=== PATIENT | male | born 1955 | race Caucasian/White ===

== ENCOUNTER 2020-06-08 09:10 | Emergency (ER) | payer MEDICARE, OTHER, SELFPAY ==
[2020-06-08 09:21] VITALS: BP 147/70; PULSE 59; RESP 16; TEMP 36.7; O2SAT 100; BMI 20.1
--- NOTE | 2020-06-08 09:30 | ED.ABDPAIN ---
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) Mode of arrival: ambulatory Limitations: other (deaf, blind) History of Present Illness HPI narrative: R hernia pain for 1 month worse last night no associated symptoms, able to void and have BM without issue, unsure if he needed surgery MD elicited complaint: other (groin pain) Pertinent past history: none Onset (ago): unknown (1 month ago) Pain Consistency: intermittent Location: RLQ Severity: moderate Quality: aching Radiation: none Migration to: no migration Exacerbating factors: movement Relieving factors: nothing Associated symptoms: denies other symptoms Review of Systems Review of Systems Constitutional : No Weight loss, No Fever, No Chills ENT/Mouth : No sore throat, No Rhinorrhea Eyes: No Swelling, No Redness Cardiovascular : No Chest Pain, No SOB Respiratory : No Cough, No Sputum Gastrointestinal : No Nausea, No Vomiting, No Diarrhea, intermittent R lower abdomina pain Genitourinary : No Dysuria, No Urinary Frequency Musculoskeletal : No joint pain, No Myalgias Skin : No rash Neuro : No Weakness, No Numbness Psych : No Anxiety/Panic, No Depression Heme/Lymph: No Bleeding,No Lymphadenopathy Endocrine : No Polyuria, No Polydipsia Physical Exam Vital Signs and I&O and Narrative: Vital Signs and I&O: Vital Signs Temp 98.0 F 06/08/20 09:21 Pulse 59 06/08/20 09:21 Resp 16 06/08/20 09:21 BP 147/70 H 06/08/20 09:21 Pulse Ox 100 06/08/20 09:21 Intake & Output 06/07/20 06/08/20 06/08/20 18:59 06:59 18:59 Weight 56.699 kg Body Mass Index 20.1 Const: General: cooperative, healthy appearing and no acute distress Orientation/consciousness: oriented to person, oriented to place, oriented to time and patient oriented x3 HENMT: Head: Yes normal to inspection Face and sinus: Yes normal facial exam Mouth: Normal oral and palatal mucosa present Neck: Neck: Yes normal visual inspection Chest: Chest palpation & inspection: normal inspection of the chest Resp: Effort & Inspection: normal respiratory effort Auscultation: clear to auscultation bilaterally Cardio: Rate: regular rate Rhythm: regular rhythm GI: Other: easily reduced nontender inguinal hernia right side, normal color, normal scrotum, abodmen is soft and nontender Inspection: Yes normal to inspection Auscultation: normal bowel sounds : Scrotum: scrotum normal Skin: General skin exam: no rashes or lesions noted Neuro: General: oriented to person, oriented to place, oriented to time and patient oriented x3 Gait exam (Neuro): Normal gait present Motor exam (neuro): 5/5 motor strength present throughout Extrem: General: Yes normal to inspection and Yes no pedal edema Psych: Appearance: grossly normal Mental Status: mental status grossly normal MDM - Abdominal Pain MDM Narrative Medical decision making narrative: hernia x 1 month, nontender, no or associated GI complaints, easily reduced discussed expectant course and need for follow up and surgery as outpatient Discharge Plan Discharge Clinical Impression: Inguinal hernia Qualifiers: Obstruction and gangrene presence: without obstruction or gangrene Laterality: unilateral Recurrence: recurrent Qualified Code(s): K40.91 - Unilateral inguinal hernia, without obstruction or gangrene, recurrent Patient Disposition: Home, Self-Care Additional Instructions: wear tight fitting underwear do not lift anything over 10lbs, avoid straining Referrals: Miguel Mcclure MD [Physician] - 1 week Interventions: ED Discharge Assessment Last Done: 06/08/20 10:07 Print Language: Northern Irish [facility] Past Medical History Attestation statement: The following information was validated with the patient. Medical History Blind Deaf Inguinal hernia Surgical History H/O eye surgery Hx of LASIK Social History Social History Smoking Status: Never smoker
== END 2020-06-08 10:07 | disposition home or self-care (01) ==
LOC: HO.ED 10:30
PROVIDERS: Emergency Provider Emergency Medicine; PCP Family Medicine
DX: K40.91 Unilateral inguinal hernia, without obstruction or gangrene, recurrent (principal)
CPT/HCPCS: 99283; 99284

== ENCOUNTER → 2020-06-14 14:57 | Outpatient (BNVA) | payer MEDICARE, OTHER, SELFPAY | PROVIDERS: PCP Family Medicine; Referring Provider Family Medicine; Visit Provider Surgery | DX: K40.90 Unilateral inguinal hernia, without obstruction or gangrene, not specified as recurrent (principal) | CPT/HCPCS: 99203 ==

== ENCOUNTER 2020-06-21 08:51 | Outpatient (REF) | payer MEDICARE, OTHER, SELFPAY ==
--- NOTE | 2020-06-22 10:13 | MHC.AU.P13 ---
Adult Audiological Evaluation Date of Visit: 06/21/20 Reason for Appointment: Audiologic re-evaluation to determine possible change in hearing prior to obtaining new hearing aid(s). Previous Hearing Test Results: 04/14/2019 Asymmetric severe to profound sensorineural hearing loss, right ear poorer than left. Speech discrimination was 44% for the left ear at 100 dB HL and 0% for the right ear. Medical History: Medical History: Usher's Syndrome. Nitesh is also blind and working with the [employer] [facility] to obtain new amplification. Hearing Instrument History- Left Ear: Truck Hopper: Truevision Model: ES 70-DVI Serial Number: [id number] Battery Size: 13 Otoscopy: Right Ear: Unremarkable Left Ear: Non-occluding cerumen Tympanometry: Right Ear: Normal Middle Ear System (Type A) Left Ear: Negative Middle Ear Pressure (Type C) Hearing Evaluation: Transducer(s) Used: Insert Earphones Bone Conduction Method: Conventional Audiometry Stimuli Used: Pure Tones Right Ear: Description of Hearing: Moderately-severe to profound sensorineural hearing loss Left Ear: Description of Hearing: Severe to profound sensorineural hearing loss. Speech Recognition Threshold (SRT): Method Used: Monitored Live Voice Stimuli Used: Spondee Words Right Ear: Could Not Test - unable to discriminate speech Left Ear: 70 dB HL Word Discrimination: Method: Monitored Live Voice Word Lists Used: Lista Bisil?bica ([place] Citizen) Right Ear: 10% Left Ear: 52% Comparison: Compared to the most recent evaluation: Hearing is stable. Recommendations: Recommendations: Audiological re-evaluation in one year. Trial with amplification is recommended. Medical clearance from a physician is required before fitting. Hearing Aid Fitting will be scheduled when all materials arrive. Recommendations (Other): Discussed hearing aid options. Originally recommended a Bi-CROS hearing aid system due to Nitesh' very poor right ear speech discrimination ability. However, Nitesh reports he has always used binaural amplification and know that he only has the left aid, her feels very off balanced and wants hearing aids for both ears. Will contact [facility] with the recommendation of switching his current aid to the right ear and obtaining a new left Phonak Maria Esther M 30-SP [id number] aid. Diagnosis: Primary Diagnosis: H90.3 Bilateral Sensorineural Hearing Loss Services Performed: Services Performed: Comprehensive Audiological Evaluation (CPT 59415) Tympanometry (CPT 16033) Signature: Provider: Quiana Israel, CCC-A
== END 2020-06-21 08:52 | disposition home or self-care (01) ==
LOC: HO.SH 08:51
PROVIDERS: Visit Provider Family Medicine
DX: H90.3 Sensorineural hearing loss, bilateral (principal)
CPT/HCPCS: 92557; 92567

== ENCOUNTER 2020-07-07 10:03 | Day surgery (SDC) | payer MEDICARE, OTHER, SELFPAY ==
--- NOTE | 2020-07-06 09:12 | HO.ANESPROP2 ---
Documented by User: Mattie Wells 07/06/20 09:15 HPI - Anesthesia Eval Consult details Narrative: 65yo M for R inguinal hernia repair PMFSH Past Medical History Medical History Blind Deaf Hearing impaired Impaired vision Inguinal hernia Unilateral inguinal hernia Surgical History Surgical History H/O eye surgery Hx of LASIK Social History Social History Smoking Status: Never smoker Second Hand Smoke Exposure: No Advance Directives: No Advance Directives Information Provided: Yes Advance Directives on File: No Meds Allergies Allergy/AdvReac Type Severity Reaction Status Date / Time No Known Allergies Allergy Verified 06/14/20 15:15 Exam Exam Date and Time: July 06, 2020 0912 Assessment and Plan Assessment Anesthesia Assessment: Chart Reviewed Documented by User: Francoise Del Real 07/07/20 11:01 PMFSH Past Medical History Medical History Blind Deaf Hearing impaired Impaired vision Inguinal hernia Unilateral inguinal hernia Surgical History Surgical History H/O eye surgery Hx of LASIK Social History Social History Smoking Status: Never smoker Second Hand Smoke Exposure: No Advance Directives: No Advance Directives Information Provided: Yes Advance Directives on File: No Meds Allergies Allergy/AdvReac Type Severity Reaction Status Date / Time No Known Allergies Allergy Verified 06/14/20 15:15 Exam Airway Mallampati Class: II TM Dist: >3cm Neck ROM: Full Heart: RRR Lungs: CTA BL
[2020-07-06 10:58] VITALS: BMI 18.2
[2020-07-07] VITALS (13 sets, daily range): BP systolic 122–186; BP diastolic 64–103; PULSE 56–86; RESP 14–19; TEMP 36.3–36.8; O2SAT 98–100
[2020-07-07] MEDS: Lactated Ringers 1,000 ML 100 ML IVCONT (10:37)
[2020-07-07] MEDS: ceFAZolin Sodium/Dextrose,Iso 2 GM/50 ML PIGGYBACK IV (10:37)
--- NOTE | 2020-07-07 11:03 | HO.ANESPROP2 ---
[facility] Past Medical History Medical History Blind Deaf Hearing impaired Impaired vision Inguinal hernia Unilateral inguinal hernia Surgical History Surgical History H/O eye surgery Hx of LASIK Social History Social History Smoking Status: Never smoker Second Hand Smoke Exposure: No Advance Directives: No Advance Directives Information Provided: Yes Advance Directives on File: No Meds Allergies Allergy/AdvReac Type Severity Reaction Status Date / Time No Known Allergies Allergy Verified 06/14/20 15:15 Exam Exam Date and Time: July 07, 2020 1103 Height,Weight and Vital Signs: Height 5 ft 6 in Weight 51.256 kg Last Vital Signs Temp 97.8 F 07/07/20 10:14 Pulse 60 07/07/20 10:14 Resp 18 07/07/20 10:14 BP 141/74 H 07/07/20 10:14 Pulse Ox 100 07/07/20 10:14 Assessment and Plan Assessment Anesthesia Assessment: Anesthesia Plan Discussed, PAT Visit and Chart Reviewed Final Anesthetic Review NPO: Yes ASA Class: II Final Preanesthetic Review: No Changes in Pt Med Stat, Meds/Allgs Chart Reviewed and Consent Obtained/Reviewed Patient Risk: Low Procedure Risk: Low Anesthetic Plan Anesthetic Plan: GA Disposition: Standard PACU
--- NOTE | 2020-07-07 11:12 | MHC.SHP ---
Pre-Procedural Eval Section B Chief Complaint: Unilateral Inguinal Hernia, Without Obstruction Allergies: Allergies Allergy/AdvReac Type Severity Reaction Status Date / Time No Known Allergies Allergy Verified 06/14/20 15:15 Plan Patient has been examined and remains a candidate for the planned procedure
--- NOTE | 2020-07-07 12:17 | P.BOP_ITS ---
Brief Operative Note Date of procedure: 07/07/20 Pre-op diagnosis: right inguinal hernia Post-op diagnosis: same (direct) Procedure: repair of right inguinal hernia with mesh Implants: Bard mesh perfix plug, small Surgeon: AMISHA THIBODEAUX MD Anesthesia: GLMA Vinyl Flooring Installer: Charlee Hi Estimated blood loss (mL): 10 IV fluids (mL): 1,000 Pathology: none sent Condition: stable Disposition: PACU
[2020-07-07] MEDS: fentaNYL citrate/PF 100 MCG/2 ML VIAL 25 MCG IVPUSH (13:01)
[2020-07-07] MEDS: Ketorolac Tromethamine 15 MG/ML VIAL IVPUSH (13:01)
[2020-07-07] MEDS: oxyCODONE HCl Immed Release 5 MG TABLET PO (13:02)
[2020-07-07] MEDS: Acetaminophen 325 MG TABLET 650 MG PO (13:02)
--- NOTE | 2020-07-07 17:22 | OP_ITS ---
SURGEON: Miguel Mcclure MD INDICATIONS: The patient is a 65-year-old male with a reducible mass in the right groin consistent with right inguinal hernia. He wanted to proceed with repair. He understood the technique of the procedure. He is aware of the risks, benefits, and alternatives. PREOPERATIVE DIAGNOSIS: Right inguinal hernia. POSTOPERATIVE DIAGNOSIS: Right inguinal hernia, direct hernia. PROCEDURE PERFORMED: Repair of right inguinal hernia with mesh and plug. ESTIMATED BLOOD LOSS: COMPLICATIONS: ANESTHESIA: ASSISTANTS: Charlee Hi PA-C. SPECIMENS: DESCRIPTION OF PROCEDURE: He was brought to the operating room, placed supine on the table under general anesthesia via laryngeal mask airway. The right groin was prepped and draped in usual sterile fashion. A surgical time-out was done. The patient received cefazolin 2 g IV preoperatively. I marked an imaginary line from anterior superior iliac spine to the pubic ramus. I infiltrated this area with lidocaine 1%. I made a short incision using blade #15 along this marked line and this was carried down to full-thickness skin and thick subcutaneous fat using electrocautery. External oblique aponeurosis was then visualized. We bluntly dissected this to define the external ring. We made an incision on the external oblique aponeurosis overlying the canal using blade #15, it was extended inferomedially to connect with the external ring. The inguinal canal was therefore entered. Graspers were applied to the edges of the external oblique aponeurosis. I bluntly dissected the underside of the aponeurosis with the finger to create a pocket for the mesh. I then bluntly dissected the spermatic cord and its contents using index finger until I was able to pass a Carmen drain around this. The [place] drain was used for traction. I examined the cord. There was note of sac, but this was actually attached to the floor of the canal consistent with a direct hernia. This sac was gently dissected off the rest of the cord contents. The vas deferens along with its vessels were seen. There was no other sac on the spermatic cord. Again, this was therefore a direct hernia on the floor of the canal. I reinforced this hernia with a small sized plug. This plug was secured together with Prolene 2-0 suture to shelving edge of the inguinal ligament laterally and the internal oblique superiorly and medially using the inner leaves of the plug. I reinforced the floor of the canal with keyhole mesh. The tails of the mesh were passed around the cord at the level of the internal ring and were secured together with Prolene 2-0 sutures. I secured the flat mesh with Prolene 2-0 suture to shelving edge of the inguinal ligament laterally and the internal oblique superiorly, medially as well as the pubic ramus inferomedially. I observed for hemostasis. Once hemostasis was ensured, proceeded to close the external oblique aponeurosis using Dexon 2-0 sutures to re-create the external ring. We made sure that the ilioinguinal nerve was not caught between the sutures. The thin subcutaneous layer was reapposed with Dexon 3-0 sutures. Skin closure achieved with Dexon 4-0 subcuticular running stitch. Steri-Strips and dressings were applied. The incision was infiltrated with Marcaine 0.5% for postop analgesia. The procedure was completed. The patient tolerated the procedure well. There were no complications noted. Initial and final counts of sponges and instruments were correct. Estimated blood loss was minimal. The patient was extubated without difficulty and transferred to recovery room with stable vital signs. The discharge instructions given earlier with the patient's caregiver. MD ISIAH Cali/GRECIA / [id number]
== END 2020-07-07 14:20 | disposition home or self-care (01) ==
PROVIDERS: PCP Family Medicine; Visit Provider Surgery
PROC: (CPT 49505; principal; 2020-07-07 11:50)
PROC: (CPT 49505; 2020-07-07 11:50)
DX: K40.90 Unilateral inguinal hernia, without obstruction or gangrene, not specified as recurrent (principal)
CPT/HCPCS: 49505; C1781; J0690; J1100; J1885; J2250; J2405; J3010

== ENCOUNTER → 2020-07-31 10:44 | Outpatient (BNVA) | payer MEDICARE, OTHER, SELFPAY | PROVIDERS: PCP Family Medicine; Visit Provider Surgery | DX: Z09 Encounter for follow-up examination after completed treatment for conditions other than malignant neoplasm (principal); Z87.19 Personal history of other diseases of the digestive system | CPT/HCPCS: 99212 ==

== ENCOUNTER → 2020-08-09 13:15 | Outpatient (BNVA) | payer MEDICARE, OTHER, SELFPAY | PROVIDERS: PCP Family Medicine; Referring Provider Family Medicine; Visit Provider Physician Assistant | DX: Z12.11 Encounter for screening for malignant neoplasm of colon (principal); K59.09 Other constipation | CPT/HCPCS: 99202 ==

== ENCOUNTER 2020-08-21 09:48 | Outpatient (REF) | payer SELFPAY | END 2020-08-21 09:49 | disposition home or self-care (01) | LOC: HO.HAP 09:48 | PROVIDERS: PCP Family Medicine; Referring Provider Family Medicine; Visit Provider Family Medicine | DX: Z46.1 Encounter for fitting and adjustment of hearing aid (principal); H90.3 Sensorineural hearing loss, bilateral | CPT/HCPCS: V5257 ==

== ENCOUNTER 2020-09-07 10:03 | Outpatient (REF) | payer SELFPAY | END 2020-09-07 10:04 | disposition home or self-care (01) | LOC: HO.HAP 10:03 | PROVIDERS: Visit Provider Family Medicine | DX: Z13.89 Encounter for screening for other disorder (principal) ==

== ENCOUNTER 2020-09-21 11:11 | Day surgery (SDC) | payer MEDICARE, OTHER, SELFPAY ==
[2020-09-18 11:13] VITALS: BMI 19.3
--- NOTE | 2020-09-20 13:09 | P.CONAN_ITS ---
Documented by User: Mattie Wells 09/20/20 13:10 HPI - Anesthesia Eval Consult details Narrative: 65yo M for Colonoscopy Blind and Deaf, requires tactile ASL s/p hernia repair with GA 07/07/20 [facility] Past Medical History Medical History (Updated 09/18/20 @ 11:12 by Isabel Arellano) Blind Chronic constipation Deaf Hearing impaired Impaired vision Inguinal hernia Unilateral inguinal hernia Usher's syndrome Family History Family History (Updated 08/09/20 @ 13:45 by Dawna Car CMA) Father No problems noted. Mother No problems noted. Surgical History Surgical History (Updated 09/18/20 @ 11:13 by Isabel Arellano) H/O eye surgery Hx of LASIK Hx of right inguinal hernia repair Social History Social History (Updated 08/09/20 @ 14:02 by Helene Rosado PA-C) Alcohol intake: never Smoking Status: Never smoker Second Hand Smoke Exposure: No Use of substances other than those prescribed or required for medical reasons: No Advance Directives: No Advance Directives Information Provided: No Advance Directives on File: No Meds Allergies Allergy/AdvReac Type Severity Reaction Status Date / Time No Known Allergies Allergy Verified 09/18/20 11:10 Exam Exam Date and Time: September 20, 2020 1309 Height,Weight and Vital Signs: Height 5 ft 6 in Weight 54.431 kg Assessment and Plan Assessment Anesthesia Assessment: Chart Reviewed Documented by User: Charlotte Hansen 09/21/20 12:16 [facility] Past Medical History Medical History (Updated 09/18/20 @ 11:12 by Isabel Arellano) Blind Chronic constipation Deaf Hearing impaired Impaired vision Inguinal hernia Unilateral inguinal hernia Usher's syndrome Family History Family History (Updated 08/09/20 @ 13:45 by Dawna Car CMA) Father No problems noted. Mother No problems noted. Family history of problems with anesthesia: No Surgical History Surgical History (Updated 01/11/21 @ 11:13 by Isabel Arellano) H/O eye surgery Hx of LASIK Hx of right inguinal hernia repair History of Problems with Anesthesia: No Social History Social History (Updated 08/09/20 @ 14:02 by Helene Rosado PA-C) Alcohol intake: never Smoking Status: Never smoker Second Hand Smoke Exposure: No Use of substances other than those prescribed or required for medical reasons: No Advance Directives: No Advance Directives Information Provided: No Advance Directives on File: No Meds Allergies Allergy/AdvReac Type Severity Reaction Status Date / Time No Known Allergies Allergy Verified 09/18/20 11:10 Exam Height,Weight and Vital Signs: Vital Signs Temp Pulse Resp BP Pulse Ox 09/21/20 11:57 98.7 F 53 16 128/74 98 Airway Mallampati Class: III (Small mouth opening) TM Dist: >3cm Neck ROM: Full Heart: RRR Lungs: CTAB Assessment and Plan Assessment Anesthesia Assessment: Anesthesia Plan Discussed and Chart Reviewed Final Anesthetic Review NPO: Yes ASA Class: II Final Preanesthetic Review: No Changes in Pt Med Stat, Meds/Allgs Chart Reviewed, Consent Obtained/Reviewed and Anes Risks/Benef Reviewed Patient Risk: Low Procedure Risk: Low Anesthetic Plan Anesthetic Plan: MAC: Disposition: Standard PACU
--- NOTE | 2020-09-21 11:50 | MHC.SHP ---
Pre-Procedural Eval Section B Chief Complaint: screening Relevant Family History (Specify if Yes): No Relevant Social History: None Present Medications: see Short Stay Collaborative assessment Medical History: Significant History (Blind Chronic constipation Deaf Hearing impaired Impaired vision Inguinal hernia Unilateral inguinal hernia Usher's syndrome) History of Previous Operations: Relevant previous surgery/procedure and date(s) (hernia repair) Allergies: Allergies Allergy/AdvReac Type Severity Reaction Status Date / Time No Known Allergies Allergy Verified 09/18/20 11:10 Review of Systems Sugical H&P ROS: Negative: Constitution, Cardiovascular, Respiratory, Neurological, Psychiatric, Hem-Onc, Allergic/Immunologic, Gastrointestinal, Genitourinary, Musculoskeletal, Integumentary, Endocrine and Eyes/Ears/Nose/Throat Exam Surgical H&P Exam: Normal: HEENT, Normal: Heart, Normal: Lungs, Normal: Extremities, Normal: Abdomen and Normal: Skin and Significant Findings: Neurological (deaf,blind) Plan Diagnosis/Plan: Unchanged I have reviewed the history and physical and performed a pertinent physical examination on my patient. No changes have occurred unless specified.
[2020-09-21 11:57] VITALS: BP 128/74; PULSE 53; RESP 16; TEMP 37.1; O2SAT 98
--- NOTE | 2020-09-21 12:17 | PM.OP ---
Brief Operative Note Date of Service: 09/21/20 Pre-op diagnosis: colon screening Post-op diagnosis: same Procedure: see op note Surgeon: Tani Shell MD Anesthesia: MAC Estimated blood loss (mL): 0 Condition: stable Disposition: PACU
--- NOTE | 2020-09-21 12:17 | W.PM.OPN ---
Operative Note Operative Note Date of Service: 09/21/20 Narrative: Operative Information Procedure Description: Colonoscopy COLONOSCOPY Instrument: Olympus variable stiffness pediatric scope 190L Colonoscopy Monitoring: Vital signs and clinical assessment, continuous EKG monitoring, Pulse oximetry, Carbon Dioxide monitoring and blood pressure monitoring were done throughout the procedure. Colon withdrawal time was 22 minutes. Procedure: The patient was placed in the left lateral decubitis position and pre-procedure medications were administered. After a digital rectal examination of the ano-rectum, the video colonoscope was inserted into the rectum and advanced through the colon to the cecum/TI. The colonoscope was slowly withdrawn in a retrograde panoramic fashion and the colon mucosa was carefully examined including a retroflexed view of the rectum. Findings and interventions are described below. Procedure Difficulty:difficult due to prep Findings: Terminal Ileum-not entered or seen due to prep Cecum:normal Ascending Colon: normal Transverse Colon -normal Descending Colon:normal Sigmoid Colon: normal Rectum: Retroflexion not done Anorectum - normal Colon preparation: [place] Bowel Preparation Scale Right colon; 1 Transverse colon: 0 Left colon; 0 (0 = Unprepared colon segment with mucosa not seen due to solid stool that cannot be cleared. 1 = Portion of mucosa of the colon segment seen, but other areas of the colon segment not well seen due to staining, residual stool and/or opaque liquid. 2 = Minor amount of residual staining, small fragments of stool and/or opaque liquid, but mucosa of colon segment seen well. 3 = Entire mucosa of colon segment seen well with no residual staining, small fragments of stool or opaque liquid) Impression and Post Procedure Diagnosis: poor prep despite vigorous washing to try to clean Plan: Repeat Colonoscopy in 6-8 months, review prep again with him and carer Above findings were reviewed with the patient and relevant handouts were provided if indicated.
[2020-09-21 13:20] VITALS: BP 125/66; PULSE 66; RESP 18; TEMP 36.1; O2SAT 99
[2020-09-21 13:55] VITALS: BP 148/76; PULSE 81; RESP 18; O2SAT 99
[2020-09-21 14:05] VITALS: BP 147/87; PULSE 67; RESP 18; O2SAT 99
[2020-09-21 14:20] VITALS: BP 125/66; PULSE 66; RESP 18; TEMP 36.4; O2SAT 99
== END 2020-09-21 15:18 | disposition home or self-care (01) ==
PROVIDERS: PCP Family Medicine; Visit Provider Internal Medicine Gastroenterology
PROC: 0DJD8ZZ Inspection of Lower Intestinal Tract, Via Natural or Artificial Opening Endoscopic (ICD-10-PCS; CPT 45378; principal; 2020-09-21 12:40)
DX: Z12.11 Encounter for screening for malignant neoplasm of colon (principal); K59.04 Chronic idiopathic constipation; H54.7 Unspecified visual loss; H91.93 Unspecified hearing loss, bilateral; L10.4 Pemphigus erythematosus; Z79.899 Other long term (current) drug therapy
CPT/HCPCS: G0121

== ENCOUNTER → 2020-09-28 12:53 | Outpatient (BNVA) | payer MEDICARE, OTHER, SELFPAY | PROVIDERS: PCP Family Medicine; Visit Provider Physician Assistant | DX: Z13.89 Encounter for screening for other disorder (principal) | CPT/HCPCS: Q3014 ==

== ENCOUNTER → 2021-04-10 11:50 | Outpatient (BNVA) | payer MEDICARE, OTHER, SELFPAY | PROVIDERS: PCP Family Medicine; Referring Provider Family Medicine; Visit Provider Internal Medicine Gastroenterology | DX: Z12.11 Encounter for screening for malignant neoplasm of colon (principal); S70.362A Insect bite (nonvenomous), left thigh, initial encounter | CPT/HCPCS: 99212 ==

== ENCOUNTER → 2021-07-18 10:43 | Day surgery (SDC) | payer MEDICARE, OTHER, SELFPAY ==
--- NOTE | 2021-06-05 10:19 | P.CONAN_ITS ---
HPI - Anesthesia Eval Consult details Narrative: 66yo M for Colonoscopy Colonoscopy with TIVA 09/2020 (poor prep) [facility] Active Problems Active Problems: All Active Problems (Updated 09/28/20 @ 13:29 by Helene Rosado PA-C) Encounter for screening colonoscopy (Acute) Chronic constipation (Acute) Unilateral inguinal hernia (Acute) Hearing impaired (Acute) Impaired vision (Acute) Past Medical History Medical History Blind Chronic constipation Deaf Hearing impaired Impaired vision Inguinal hernia Unilateral inguinal hernia Usher's syndrome Family History Family History Father No problems noted. Mother No problems noted. Family history of problems with anesthesia: No Surgical History Surgical History (Updated 05/31/21 @ 15:03 by Osiris Cerna RN) H/O eye surgery Hx of colonoscopy Hx of LASIK Hx of right inguinal hernia repair History of Problems with Anesthesia: No Social History Social History Household Members Other:: senior housing Alcohol intake: never Second Hand Smoke Exposure: No Meds Allergies Allergy/AdvReac Type Severity Reaction Status Date / Time No Known Allergies Allergy Verified 05/31/21 15:21 Exam Exam Date and Time: June 05, 2021 1019 Assessment and Plan Assessment Anesthesia Assessment: Chart Reviewed Final Anesthetic Review Family History of Problems with Anesthesia: No History of Problems with Anesthesia: No
--- NOTE | 2021-07-17 10:34 | P.CONAN_ITS ---
HPI - Anesthesia Eval Consult details Narrative: 66yo M for Colonoscopy Blind/Deaf - uses certified court/medical interpreter s/p [place] with TIVA 09/2020 - repeat d/t poor prep PMFSH Active Problems Active Problems: All Active Problems (Updated 09/28/20 @ 13:29 by Helene Rosado PA-C) Encounter for screening colonoscopy (Acute) Chronic constipation (Acute) Unilateral inguinal hernia (Acute) Hearing impaired (Acute) Impaired vision (Acute) Past Medical History Medical History Blind Chronic constipation Deaf Hearing impaired Impaired vision Inguinal hernia Unilateral inguinal hernia Usher's syndrome Family History Family History Father No problems noted. Mother No problems noted. Family history of problems with anesthesia: No Surgical History Surgical History H/O eye surgery Hx of colonoscopy Hx of LASIK Hx of right inguinal hernia repair History of Problems with Anesthesia: No Social History Social History Household Members Other:: senior housing Alcohol intake: never Second Hand Smoke Exposure: No Meds Allergies Allergy/AdvReac Type Severity Reaction Status Date / Time No Known Allergies Allergy Verified 05/31/21 15:21 Exam Exam Date and Time: July 17, 2021 1034 Assessment and Plan Assessment Anesthesia Assessment: Chart Reviewed Final Anesthetic Review Family History of Problems with Anesthesia: No History of Problems with Anesthesia: No
[2021-07-18 11:22] VITALS: BMI 19.0
--- NOTE | 2021-07-18 11:28 | MHC.SHP ---
Pre-Procedural Eval Section A Date of Service: 07/18/21 Section B Chief Complaint: Screening Relevant Family History (Specify if Yes): No Relevant Social History: None Present Medications: see Short Stay Collaborative assessment Medical History: Significant History (Blind Chronic constipation Deaf Hearing impaired Impaired vision Inguinal hernia Unilateral inguinal hernia Usher's syndrome) Allergies: Allergies Allergy/AdvReac Type Severity Reaction Status Date / Time No Known Allergies Allergy Verified 05/31/21 15:21 Review of Systems Sugical H&P ROS: Negative: Constitution, Cardiovascular, Respiratory, Neurological, Psychiatric, Hem-Onc, Allergic/Immunologic, Gastrointestinal, Genitourinary, Musculoskeletal, Integumentary, Endocrine and Eyes/Ears/Nose/Throat Exam Surgical H&P Exam: Normal: HEENT, Normal: Heart, Normal: Lungs, Normal: Extremities, Normal: Abdomen, Normal: Skin and Normal: Neurological Plan Diagnosis/Plan: Unchanged I have reviewed the history and physical and performed a pertinent physical examination on my patient. No changes have occurred unless specified.
[2021-07-18 11:39] VITALS: BP 148/65; PULSE 60; RESP 16; TEMP 36.7; O2SAT 98
--- NOTE | 2021-07-18 12:02 | PC.NURSE ---
PATIENT HAD AN ENEMA WITH LIQUID BROWN OUTPUT. RAHUL PROCEDURE WELL. ASL INTERPRETERS BY BEDSIDE AND EXPLAINING TO PATIENT HIS PLAN OF CARE.
--- NOTE | 2021-07-18 12:04 | PC.NURSE ---
MD PARKS AWARE AND CANCELLED PROCEDURE. BILL CALLED.
--- NOTE | 2021-07-18 12:07 | PC.NURSE ---
CALLED [facility] FOR HIS [place] [place] [phone]
== END ==
PROVIDERS: PCP Family Medicine; Visit Provider Internal Medicine Gastroenterology
DX: Z12.11 Encounter for screening for malignant neoplasm of colon (principal); Z53.8 Procedure and treatment not carried out for other reasons; H54.7 Unspecified visual loss; H91.93 Unspecified hearing loss, bilateral

== ENCOUNTER 2021-08-17 09:28 | Outpatient (REF) | payer MEDICARE, OTHER, SELFPAY ==
--- NOTE | ~2021-08-17 | CT_ITS ---
EXAMINATION: CT ABDOMEN AND PELVIS WITH CONTRAST CLINICAL INFORMATION: Abnormal weight loss COMPARISON: None TECHNIQUE: Multidetector volumetric images were obtained from the superior aspect of the liver through the pubic symphysis following administration 85 mL of Omnipaque 350 intravenous contrast. Sagittal and coronal reformatted images were obtained on the technologist's workstation. Oral contrast: Yes This CT examination was performed using dose optimization techniques as appropriate, variously including the following: *Automated exposure control *Adjustment of mA and/or kV according to patient size (this includes techniques or standardized protocols for targeted exams where dose is matched to indication/reason for exam; i.e. extremities or head) *Use of iterative reconstruction technique DLP: 259 mGy-cm FINDINGS: LUNG BASES: There are numerous nodules seen at the lung bases. The majority appear to be associated with airways represent bronchial soft tissue opacification or mucus plugging. This is greatest in the right middle lobe. There is a 4 mm left lower lobe nodule axial image 6 series 3 that may be a or not related to airways disease. LIVER, GALLBLADDER, AND BILIARY TREE: The liver is normal in size, shape, and attenuation. There is a small calcification seen in the high right lobe of the liver No other focal hepatic lesion or biliary ductal dilatation is present. The gallbladder is unremarkable with no evidence of radiopaque gallstones, gallbladder wall thickening, or obvious pericholecystic inflammatory changes. PANCREAS: Unremarkable. SPLEEN: Unremarkable. ADRENAL GLANDS: Unremarkable. KIDNEYS AND URETERS: The kidneys are normal in size, shape, and attenuation. There are left renal peripelvic cysts. As a tiny 2 mm stone in the lower pole of the left kidney. No hydronephrosis. BLADDER: The bladder wall is diffusely thickened. The prostate gland is enlarged and protrudes into the base of the bladder. GASTROINTESTINAL TRACT: There is stool throughout the colon suggestive of constipation. The colon is slightly distended. There is mild diverticulosis of the colon. No evidence of diverticulitis is seen. The appendix is normal. ABDOMINAL WALL: No significant hernia is appreciated. LYMPH NODES: Normal. VASCULAR: Unremarkable. PELVIC VISCERA: Prostate gland is enlarged and measures 4 x 5 cm in AP and transverse dimension. The prostate gland protrudes into the base of the bladder. OSSEOUS STRUCTURES: There is a small lucency in the right elbow to vertebral body. There are small lucencies seen in the bilateral iliac bones, left greater than right. CT/CT abdomen pelvis w con IMPRESSION: Constipation. Mild diverticulosis. Small nonobstructing left renal stone. Left renal peripelvic cysts. Enlarged prostate gland that protrudes into the base of the bladder and diffuse bladder wall thickening. Evidence of extensive airways disease at the lung bases, greatest in the right middle lobe Fleischner guidelines were followed.
[2021-08-17 10:44] LABS: Blood Urea Nitrogen 19 mg/dL (9-16); Estimated Glomerular Filt Rate > 60
[2021-08-17] MEDS: iohexoL 350 MG/ML 100 ML INFUS..BTL IV (14:08)
[2021-08-17] MEDS: Barium Sulfate Oral (Mocha) 450 ML ORAL.SUSP 900 ML PO (14:09)
== END 2021-08-17 09:29 | disposition home or self-care (01) ==
LOC: HO.CT 09:28
PROVIDERS: PCP Family Medicine; Referring Provider Family Medicine; Visit Provider Internal Medicine Gastroenterology
DX: R63.4 Abnormal weight loss (principal); K57.92 Diverticulitis of intestine, part unspecified, without perforation or abscess without bleeding; K75.81 Nonalcoholic steatohepatitis (NASH); N20.0 Calculus of kidney; R10.33 Periumbilical pain; R30.0 Dysuria; R91.8 Other nonspecific abnormal finding of lung field; J98.4 Other disorders of lung; N40.1 Benign prostatic hyperplasia with lower urinary tract symptoms; K63.89 Other specified diseases of intestine; G89.29 Other chronic pain
CPT/HCPCS: 36415; 74177; 82565; 84520; 99212; Q9967

== ENCOUNTER → 2021-10-01 13:25 | Outpatient (BNVA) | payer MEDICARE, SELFPAY | PROVIDERS: PCP Family Medicine; Visit Provider Hospitalist | DX: J47.9 Bronchiectasis, uncomplicated (principal); R91.8 Other nonspecific abnormal finding of lung field; R13.10 Dysphagia, unspecified; R63.4 Abnormal weight loss | CPT/HCPCS: 99202 ==

== ENCOUNTER 2021-10-12 12:51 | Outpatient (REF) | payer MEDICARE, SELFPAY ==
--- NOTE | ~2021-10-12 | CT_ITS ---
EXAMINATION: CT CHEST WITHOUT CONTRAST CLINICAL INFORMATION: Nonspecific abnormal lung finding. COMPARISON: None TECHNIQUE: Multidetector volumetric CT imaging of the chest was done. Axial MIP volume rendering provided. Sagittal and coronal reformatted images were obtained. This CT examination was performed using dose optimization techniques as appropriate, variously including the following: *Automated exposure control *Adjustment of mA and/or kV according to patient size (this includes techniques or standardized protocols for targeted exams where dose is matched to indication/reason for exam; i.e. extremities or head) *Use of iterative reconstruction technique DLP: 102 mGy-cm FINDINGS: VALIDATION SCIENTIST: Well-inflated lungs. LUNGS: The lungs are well expanded. There are reticulonodular changes in bilateral lower lobes, right middle lobe and lingula. The largest nodule, pleural-based left lower lobe anterobasal segment measures 9 mm. There are several additional nodules with the largest nodule measuring 1.1 cm right middle lobe adjacent to the major fissure in addition there is mild thickening of the major fissure. There is mild bronchiectasis in both lower lobes, right middle lobe and right upper lobe. There is right upper lobe peribronchial thickening with a soft tissue density in the right upper lobe adjacent to the major fissure measuring 1.1 cm in maximum dimension on axial image 264/5. There is bronchial wall thickening and intrabronchiolar debris or nodules right middle lobe best visualized on axial image 346/5. MEDIASTINUM: The thyroid lobes are symmetric and normal. The central trachea and the bronchi are widely patent. There are calcified precarinal lymph nodes. The heart size and the great vessels are normal caliber. There are coronary artery calcifications present. No pericardial effusion seen. PLEURA: There is no pleural effusion. No pleural mass or thickening. AXILLA: There are small shotty lymph nodes in the axillae. The chest wall is unremarkable. UPPER ABDOMEN: The visualized liver, spleen, pancreas, and bilateral adrenal glands are unremarkable. OSSEOUS STRUCTURES: There is no lytic or sclerotic process seen. There is mild spondylosis. CT/CT chest wo con IMPRESSION: Reticulonodular changes right upper lobe, both lower lobes, right middle lobe, and lingular segments. The nodules largest in lingula measures 9 mm and the largest right upper lobe adjacent to major fissure measures 1.1 cm. Mild bronchiectasis with wall thickening and intrabronchiolar debris. Findings most related with small airway disease. No abnormal mediastinal or hilar lymph nodes seen. Fleischner guidelines were followed.
== END 2021-10-12 12:52 | disposition home or self-care (01) ==
LOC: HO.CT 12:51
PROVIDERS: Visit Provider Hospitalist
DX: J47.9 Bronchiectasis, uncomplicated (principal); R91.8 Other nonspecific abnormal finding of lung field
CPT/HCPCS: 71250

== ENCOUNTER 2021-11-07 14:10 | Outpatient (REF) | payer MEDICARE, SELFPAY ==
--- NOTE | ~2021-11-07 | FL_ITS ---
EXAMINATION: MODIFIED BARIUM SWALLOW CLINICAL INFORMATION: Dysphagia. COMPARISON: None TECHNIQUE: Routine modified barium swallow was performed in sitting position under lateral fluoroscopy. FINDINGS: Following oral administration of thin, thick barium, apple puree, chicken and cookie coated with barium there is normal oral mastication and propagation bolus from the oral cavity through the pharynx into the esophagus without obstruction or narrowing. There is no laryngeal penetration or aspiration. No retention seen in the valleculae or piriform sinuses. Incidental finding of a [id number] ventral C5-C6 spurring slightly indenting the cervical esophagus but no obstruction. FLUOROSCOPY TIME: 1.6 minutes DOSE AREA PRODUCT: 0.856 Gy-cm2 FL/FL barium swallow modified IMPRESSION: Unremarkable modified barium swallow. Correlate with speech therapy results.
--- NOTE | 2021-11-08 15:36 | MHC.SL.IMP ---
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 Referring Physician: Jacob Flores M.D. 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 He was accompanied to this exam by a friend, who assisted in providing background information. Patient is blind and deaf. An clothing patternmaker was used via audio and video conferencing tablet device. Patient reports onset of dysphagia ?a long time ago.? He was unable to provide an approximate time. He denies pain when swallowing. He reports coughing and globus sensation in his throat with consumption of solids. He denies modifying his foods in any way at this time. Chest CT 10/12/21: ?Reticulonodular changes right upper lobe, both lower lobes, right middle lobe, and lingular segments. The nodules largest in lingula measures 9 mm and the largest right upper lobe adjacent to major fissure measures 1.1 cm. Mild bronchiectasis with wall thickening and intrabronchiolar debris. Findings most related with small airway disease. No abnormal mediastinal or hilar lymph nodes seen.? Oral Motor Exam Facial Symmetry: Symmetrical Mouth Occlusion: Normal Oral-Facial Teeth Characteristics: Intact/Normal Oral-Facial Lip Pucker Description: Normal Oral-Facial Smile (Lips) Description: Normal Oral-Facial Puff Cheeks Description: Normal Tongue Size: Normal Tongue Excursion Description: Normal Tongue Range of Movement Description: Normal Tongue Speed of Movement Description: Normal Tongue Strength of Movement (against opposing pressure): Normal Tongue Movement Characteristics: Normal/Absent Is patient able to manage secretions?: Yes Food and Liquid Trials: Oral Impairment: Lip Closure: 0=No labial escape Oral Impairment: Tongue Control During Bolus Hold: 1=Escape to lateral buccal cavity/floor of mouth (FOM) Oral Impairment: Bolus Preparation/Mastication: 1=Slow prolonged chewing/mashing with complete re-collection Oral Impairment: Bolus Transport/Lingual Motion: 2=Slowed tongue motion Oral Impairment: Oral Residue: 1=Trace residue lining oral structures Oral Impairment:Initiation of Pharyngeal Swallow: 2=Bolus head at posterior laryngeal surface of epiglottis Pharyngeal Impairment: Soft Palate Elevation: 0=No bolus between soft palate (SP)/pharyngeal wall (PW) Pharyngeal Impairment: Laryngeal Elevation: 0=Complete superior movement of thyroid cartilage (see description) Pharyngeal Impairment: Anterior Hyoid Excursion: 1=Partial anterior movement Pharyngeal Impairment: Epiglottic Movement: 0=Complete inversion Pharyngeal Impairment: Laryngeal Vestibular Closure:: 0=Complete: no air/contrast in laryngeal vestibule Pharyngeal Impairment: Pharyngeal Stripping Wave: 0=Present: complete Pharyngeal Impairment: Pharyngeal Contraction: Did not test Pharyngeal Impairment: Pharyngoesophageal Segment Openin=Complete distension and complete duration: no obstruction of flow Pharyngeal Impairment: Tongue Base (TB) Retraction: 1=Trace column of contrast/air between TB and posterior PW Pharyngeal Impairment: Pharyngeal Residue: 2=Collection of residue within or on pharyngeal structures Pharyngeal Impairment: Esophageal Clearance Upright Position: Did not test Impressions and Recommendations Clinical Observations: OBJECTIVE: Time-out: performed at 02:45 Evaluation Start: 02:30; Stop: 02:40 Patient Positioning: Seated 70-90 degrees Viewing Planes: LATERAL ONLY Contrast: MBSImP? Standardized Protocol using commercially prepared, standardized Barium viscosities, including: Varibar? THIN LIQUID (40% w/v, <15 cps) , 1/2 Shortbread Cookie (1 x1 x.25 ) MBSImP ID: [id number] MBSImP Results: Lip closure for intraoral bolus containment resulted in no labial escape. Tongue control during bolus hold allowed bolus escape to the lateral buccal cavity/floor of mouth. Bolus preparation and mastication resulted in slow, prolonged chewing/mashing but with complete re-collection. Bolus transport/lingual motion was with slowed tongue motion. Oral residue was a trace, lining oral structures. Initiation of the pharyngeal swallow occurred as the bolus head was at the posterior laryngeal surface of the epiglottis. Soft palate elevation resulted in no bolus between the soft palate and the pharyngeal wall. Laryngeal elevation demonstrated complete superior movement of the thyroid cartilage with complete approximation of the arytenoids to the epiglottic petiole. Anterior hyoid excursion demonstrated partial anterior movement. Epiglottic movement resulted in complete inversion. Laryngeal vestibular closure was complete, as indicated by no air or contrast within the laryngeal vestibule at the height of the swallow. Pharyngeal stripping wave was present and complete. Pharyngeal contraction could not be determined due to logistical reasons not related to physiologic impairment. Pharyngoesophageal segment opening was completely distended for complete duration with no obstruction of bolus flow. Tongue base retraction allowed a trace column of contrast or air between the retracted tongue base and the posterior pharyngeal wall. Pharyngeal residue was a collection of residue within or on pharyngeal structures. Esophageal clearance in the upright position could not be assessed due to logistical reasons not related to physiologic impairment. Oral Impairment Score: 6 Pharyngeal Impairment Score: 3 (absence of score, component 13) Esophageal Impairment Score: --- (absence of score, component 17) Laryngeal Penetration and Aspiration: Neither penetration nor aspiration was observed in today's study with Cookie, Thin. Structural Abnormalities Noted: Cervical osteophyte noted by radiologist, could be contributing to mild residue on posterior pharyngeal wall. ASSESSMENT: Clinician Assessment: This exam was conducted by a multidisciplinary team, which included speech pathologist, radiologist, and automotive repair technician, with tetryl nitrator operator present to assist with translation. Patient was seated in optimal upright position at 90 degree angle for lateral view only. Patient trialed the following liquid and solid consistencies: thin liquid barium by cup, pureed solid (mixture applesauce with barium paste), ground solid (mixture chicken salad with barium paste), regular solid (Kajal Doone cookie coated with barium paste). Good labial seal with no interlabial escape of bolus. Some escape of bolus to the floor of mouth, but no posterior escape prior to pharyngeal swallow trigger. Mildly slowed mastication and mildly slowed AP transport of bolus, but with good oral recollection. Note piece meal deglutition pattern. Patient chewed solid, swallowed, continued chewing the remaining bolus, and swallowed again to clear oral cavity. Pharyngeal swallow trigger initiated as bolus head reached posterior laryngeal surface of epiglottis. No nasopharyngeal reflux. Complete laryngeal elevation with complete epiglottic inversion. Partial anterior hyoid excursion. Complete laryngeal vestibular closure. No evidence of aspiration or penetration with liquids and solids. Note trace residue in valleculae and mild residue on posterior pharyngeal wall with consumption of solids, cleared with subsequent swallow. No obstruction of flow through pharyngoesophageal segment opening. Liquid Intake Recommendation: Thin Liquid Intake Strategies: Small Sips Dietary Recommendations: Regular Medication Administration: Whole with Liquid Please contact the pharmacy regarding appropriate crushable or liquid drug formulations that are available whenever modified delivery is recommended. Compensatory Strategies Recommended: Sitting Upright (90 deg) Small Bites and Sips Alternate Liquids/Solids Rate of Ingestion Change Supervision during eating and or drinking: Total Supervision (1:1), assistance as needed given visual impairment Recommendation for Speech Therapy: NA:Typical Evaluation Intake Recommendations: Route: PO Diet Grade: Regular Liquid Consistencies: Thin Post-Study Functional Oral Intake Scale (FOIS): 7- Total oral intake with no restrictions No evidence of aspiration or penetration with solids and liquids during this exam. Good oral and pharyngeal clearance. Radiologist noted cervical osteophyte, could be contributing to mild residue on posterior pharyngeal wall, which cleared with subsequent swallow. Recommend patient to resume unmodified diet REGULAR solids and THIN liquids. Further ST intervention is no longer warranted as this exam was quite unremarkable. Patient may benefit from consult with G.I. specialist and finance analyst for reported weight loss and globus sensation. Suggested Referrals: The patient might benefit from a referral to: Gastroenterology, Pulmonology, Nutrition Services Therapy Recommendations: Therapy will be discontinued Prognosis for Improvement: The prognosis for the patient to meet nutritional needs by mouth is excellent based on degree of impairment. Clinician - Supplemental, Miscellaneous Communication: It is important to note MBSS objective studies are snapshots in time and Patient function might vary with factors such as time of day or concomitant medical conditions. For this reason, the final treatment plan for this patient should rest with their medical care team. Additional recommendations should be considered with the totality of the Patient in mind. Thank for the opportunity to participate in the care of this patient. If you have any questions about the content of this report, please contact the [facility] at [facility]. Education: Education regarding findings from today's study and plans for therapy were provided to Patient and family/caregiver through Verbal Instruction. Understanding was expressed by the Patient and family/caregiver. Buttonhole Machine Operator Clinician/Clinical Fellow: No Supervisory Statement: N/A Speech Language Pathologist: Emily Sheldon M.A., CCC-TRACK LEADER
== END 2021-11-07 14:11 | disposition home or self-care (01) ==
LOC: HO.XRAY 14:10
PROVIDERS: Visit Provider Hospitalist
DX: R13.10 Dysphagia, unspecified (principal)
CPT/HCPCS: 74230; 92611

== ENCOUNTER 2021-11-08 09:31 | Outpatient (REF) | payer MEDICARE, SELFPAY ==
[2021-11-08 10:40] LABS: MANUAL DIFF FLAG NO
[2021-11-08 10:52] LABS: Basophils Percent Auto 0.6 % (0-2); Eosinophils Absolute Auto 0.2 X10*3/uL (0.0-0.4); Eosinophils Percent Auto 2.9 % (0-4); Hematocrit 42.6 % (42.0-52.0); Hemoglobin 13.8 g/dl (14.0-18.0); Imm Gran Abs Auto 0.01 X10*3/uL (0.00-0.03); Imm Gran Pct Auto 0.2 % (0.0-0.4); Lymphocytes Absolute Auto 1.3 X10*3/uL (1.2-4.9); Mean Corpuscular HGB Conc 32.4 g/dl (31.0-36.0); Mean Corpuscular Volume 92.6 fL (80.0-98.0); Mean Platelet Volume 10.6 fL (9.4-12.4); Monocytes Absolute Auto 0.5 X10*3/uL (0.1-1.2); Monocytes Percent Auto 6.9 % (2-11); Neutrophils Absolute Auto 4.6 x10*3/uL (2.0-8.3); Neutrophils Percent Auto 69.4 % (45-73); Platelet Count 252 X10*3/uL (160-400); Red Cell Distribution Width 13.7 % (11.0-16.0); White Blood Count 6.6 X10*3/uL (4.8-10.8)
[2021-11-08 11:12] LABS: Appearance Urine HAZY; Color Urine YELLOW; Glucose Urine UA NEG (NEG); Leukocyte Esterase Urine NEG (NEG); Nitrite Urine POS (NEG); UACC Culture Trigger YES; Urine Blood TRACE (NEG); Urine Ketones NEG (NEG); Urine Protein NEG (NEG-TRACE)
[2021-11-08 11:32] LABS: Alanine Aminotransferase 26 U/L (0-40); Alkaline Phosphatase 112 U/L (39-117); Anion Gap 10 (12-20); Aspartate Amino Transferase 23 U/L (5-37); Bilirubin Total 0.7 mg/dL (0.0-1.0); Blood Urea Nitrogen 21 mg/dL (9-16); C Reactive Protein 0.39 mg/dL (< or = 0.50); Carbon Dioxide 34 mmol/L (22-29); Chloride 102 mmol/L (96-108); Estimated Glomerular Filt Rate > 60; Glucose Random 66 mg/dL (60-115); Potassium 4.5 mmol/L (3.3-5.1); Sodium 141 mmol/L (135-145); Total Protein 7.1 g/dL (6.5-8.0)
[2021-11-08 11:35] LABS: Erythrocyte Sedimentation Rate 12 MM/HR (0-15)
[2021-11-08 11:49] LABS: Bacteria Urine 4+ /LPF; RBC Urine 0-2 /HPF (0); Squamous Epithelial Cell Urine TRACE /LPF
[2021-11-08 11:50] LABS: HBsAGNum1 0.26 S/CO (0.00-0.99); Hepatitis B Surface Antigen Negative (Negative)
[2021-11-08 11:58] LABS: HBc Num1 0.16 S/CO (0.00-0.79); Hepatitis B Core Antibody Nonreactive (Nonreactive); TSH reflex Free T4 1.05 uIU/mL (0.32-4.0); Vitamin D 25-OH Total 21.8 ng/mL (>30); ~Hepatitis B Surface Antibody NONREACTIVE (Nonreactive); ~Hepatitis C Antibody Nonreactive (Nonreactive)
[2021-11-08 12:29] LABS: Ferritin 281 ng/mL (20-250)
[2021-11-08 12:31] LABS: Folate 10.5 ng/mL (> or = 4.0); Vitamin B12 561 pg/mL (200-900)
[2021-11-09 07:43] LABS: Hepatitis A Antibody IgM 0.29 Index (0-0.79); ~Hepatitis A Antibody IgM Nonreactive (Nonreactive)
[2021-11-10 07:17] LABS: Transglutaminase Ab IgG <1.0 U/mL; Transglutaminase IgA <1.0 U/mL
[2021-11-10 13:36] LABS: IgA 267 mg/dL (70-320); IgG 1205 mg/dL (600-1540); IgM 42 mg/dL (50-300)
[2021-11-10 19:36] LABS: TS Negative Control Passed; TS Panel A 0; TS Panel B 1; TS Positive Control Passed; TSpotTB Negative (Negative)
[2021-11-12 13:50] LABS: Gliadin Deamidated IgG Ab <1.0 U/mL
[2021-11-13 02:57] LABS: Zinc 73 mcg/dL (60-130)
[2021-11-13 13:31] LABS: Vitamin C 0.2 mg/dL (0.2-2.1)
[2021-11-13 16:32] LABS: Vitamin B6 5.1 ng/mL (2.1-21.7)
[2021-11-14 13:46] LABS: Nicotinamide <20 ng/mL; Vit B3 - Nicotinic Acid <20 ng/mL; Vitamin B5 (Pantothenic Acid) <40 ng/mL (<275)
[2021-11-14 15:11] LABS: Asperg fumigatus Precip Abs NEGATIVE (NEGATIVE); Micropoly faeni Abs NEGATIVE (NEGATIVE); Pigeon serum Abs NEGATIVE (NEGATIVE); Saccharo pora viridis Abs NEGATIVE (NEGATIVE); Thermo candidus Abs NEGATIVE (NEGATIVE); Thermoa vulgaris #1 NEGATIVE (NEGATIVE)
[2021-11-14 17:21] LABS: Vitamin A 40 mcg/dL (38-98)
[2021-11-14 17:32] LABS: Alpha-Tocopherol 12.2 mg/L (5.7-19.9); Beta-Gamma Tocopherol <1.0 mg/L (<=4.3)
[2021-11-16 19:57] LABS: Trypsin 911.1 ng/mL (180.5-885.3)
[2021-11-19 10:46] LABS: Vitamin K1 565 pg/mL (130-1500)
== END 2021-11-08 09:32 | disposition home or self-care (01) ==
LOC: HO.LAB 09:31
PROVIDERS: Internal Medicine Gastroenterology; PCP Family Medicine; Visit Provider Hospitalist
DX: R13.10 Dysphagia, unspecified (principal); R91.8 Other nonspecific abnormal finding of lung field; J47.9 Bronchiectasis, uncomplicated; R63.4 Abnormal weight loss; K75.81 Nonalcoholic steatohepatitis (NASH); G89.29 Other chronic pain; R10.33 Periumbilical pain; R30.0 Dysuria
CPT/HCPCS: 36415; 80053; 81001; 82180; 82306; 82607; 82728; 82746; 82784; 83519; 84207; 84443; 84446; 84590; 84591; 84597; 84630; 85025; 85652; 86140; 86258; 86331; 86364; 86481; 86606; 86609; 86704; 86706; 86709; 86803; 87086; 87088; 87186; 87340; 99212

== ENCOUNTER 2021-12-05 10:48 | Outpatient (REF) | payer MEDICARE, SELFPAY | END 2021-12-05 10:49 | disposition home or self-care (01) | LOC: HO.LAB 10:48 | PROVIDERS: PCP Family Medicine; Visit Provider Urology | DX: R35.1 Nocturia (principal); N40.1 Benign prostatic hyperplasia with lower urinary tract symptoms; N13.8 Other obstructive and reflux uropathy; N32.89 Other specified disorders of bladder | CPT/HCPCS: 51798; 87086; 87088; 87186; 99202 ==

== ENCOUNTER → 2022-02-08 09:54 | Outpatient (BNVA) | payer MEDICARE, SELFPAY | PROVIDERS: PCP Family Medicine; Visit Provider Urology | DX: N40.1 Benign prostatic hyperplasia with lower urinary tract symptoms (principal); N13.8 Other obstructive and reflux uropathy; N32.89 Other specified disorders of bladder | CPT/HCPCS: 52000; 99212 ==

== ENCOUNTER → 2022-02-26 11:12 | Outpatient (BNVA) | payer MEDICARE, SELFPAY | PROVIDERS: PCP Family Medicine; Visit Provider Hospitalist | DX: R91.8 Other nonspecific abnormal finding of lung field (principal); J47.9 Bronchiectasis, uncomplicated; R13.10 Dysphagia, unspecified; R63.4 Abnormal weight loss | CPT/HCPCS: 99212 ==

== ENCOUNTER 2022-03-18 12:03 | Outpatient (REF) | payer MEDICARE, SELFPAY ==
--- NOTE | ~2022-03-18 | CT_ITS ---
EXAMINATION: CT CHEST WITHOUT CONTRAST CLINICAL INFORMATION: Other nonspecific abnormal finding of lung field. Follow-up pulmonary nodules. COMPARISON: Previous chest CT October 2021 TECHNIQUE: Multidetector volumetric CT imaging of the chest was done. Axial MIP volume rendering provided. Sagittal and coronal reformatted images were obtained. This CT examination was performed using dose optimization techniques as appropriate, variously including the following: *Automated exposure control *Adjustment of mA and/or kV according to patient size (this includes techniques or standardized protocols for targeted exams where dose is matched to indication/reason for exam; i.e. extremities or head) *Use of iterative reconstruction technique DLP: 144 mGy-cm FINDINGS: LUNGS: There is a tree-in-bud appearance with clustered peribronchial nodules throughout the lungs. The largest peribronchial nodule is seen in the right upper lobe where there is mucus plugging and bronchial wall thickening as well. Largest nodule measures approximately 1 cm axial image 195 series. This does not appear appreciably changed from October 2021 exam. There is bronchiectasis seen in the right middle lobe. There is interval increase in mucus plugging in the right middle lobe and right middle lobe volume loss compared to previous exam. There are 2 new adjacent peripheral right lower lobe nodules measuring 8 mm axial image 374 series 4 and larger more inferior 1.3 cm right lower lobe nodule axial image 409 series 4. There are other more medial nodular opacities in the right lower lobe that are no longer seen. Many left upper and left lower lobe nodules are no longer seen. Largest nodule is a 1 cm peripheral left upper lobe nodule. There are many new small left peribronchial nodules and overall increase in airways disease with clustered peribronchial nodules in the left lung compared to October 2021 exam. Largest new nodules are in the left lower lobe measuring 4 and 5 mm axial image 378 and 325 series 4. MEDIASTINUM: There are calcified mediastinal and left hilar lymph nodes. No enlarged lymph nodes are seen. Upper normal heart size. Trace pericardial effusion or thickening. Mild coronary artery calcification. Normal caliber thoracic aorta. PLEURA: There is no pleural effusion. No pleural mass or thickening. AXILLA: No lymphadenopathy. UPPER ABDOMEN: Small calcifications in the liver and spleen likely related to old granulomatous disease. OSSEOUS STRUCTURES: There are degenerative changes of the spine. CT/CT chest wo con IMPRESSION: Extensive airways disease with areas of clustered peribronchial nodules, bronchial wall thickening and mucus plugging. Findings appear unchanged in the right upper lobe. There is interval increase in bronchiectasis, mucus plugging and volume loss in the right middle lobe. Mixed appearance of airways disease in the right lower lobe and left lung. Fleischner guidelines were followed.
== END 2022-03-18 12:04 | disposition home or self-care (01) ==
LOC: HO.CT 12:03
PROVIDERS: PCP Family Medicine; Visit Provider Hospitalist
DX: R91.8 Other nonspecific abnormal finding of lung field (principal)
CPT/HCPCS: 71250

== ENCOUNTER 2022-04-04 06:44 | Day surgery (SDC) | payer MEDICARE, SELFPAY ==
[2022-03-29 10:57] VITALS: BMI 17.7
[2022-04-04] VITALS (8 sets, daily range): BP systolic 81–122; BP diastolic 43–60; PULSE 48–58; RESP 8–17; TEMP 36.1–36.4; O2SAT 97–100
--- NOTE | 2022-04-04 07:40 | HO.ANESPROP2 ---
HPI - Anesthesia Eval Consult details Narrative: 67 M for broncoscopy Bronchiectasis ,pulmonary nodules , coughingepisodes , impaired vision , impaired hearing . Patient is on nebulizer therapy with the Acapella valve for mucus clearance PMF Active Problems Active Problems: All Active Problems (Updated 03/28/22 @ 15:17 by Merary Guzmán RN) Encounter for screening colonoscopy (Acute) Weight loss (Acute) Bladder wall thickening (Acute) BPH w urinary obs/LUTS (Acute) Nocturia more than twice per night (Acute) Bronchiectasis (Acute) Pulmonary nodules (Acute) Dysphagia (Acute) Chronic constipation (Acute) Unilateral inguinal hernia (Acute) Hearing impaired (Acute) Impaired vision (Acute) Past Medical History Medical History (Updated 03/28/22 @ 15:17 by Merary Guzmán RN) Bronchiectasis Chronic constipation Dysphagia Hearing impaired Impaired vision Inguinal hernia Pulmonary nodules Unilateral inguinal hernia Usher's syndrome Vision impairment Family History Family History Father No problems noted. Mother No problems noted. Family history of problems with anesthesia: No Surgical History Surgical History H/O eye surgery Hx of colonoscopy Hx of LASIK Hx of right inguinal hernia repair History of Problems with Anesthesia: No Social History Social History Household Members Other:: senior housing Alcohol intake: never Patient Tobacco Use Status: Never used Tobacco Second Hand Smoke Exposure: No Meds Allergies Allergy/AdvReac Type Severity Reaction Status Date / Time No Known Allergies Allergy Verified 02/26/22 11:26 Exam Exam Date and Time: April 04, 2022 0740 Height,Weight and Vital Signs: Height 5 ft 6 in Weight 49.895 kg Last Vital Signs Temp 97.3 F 04/04/22 07:30 Pulse 48 L 04/04/22 07:30 Resp 16 04/04/22 07:30 BP 122/60 04/04/22 07:30 Pulse Ox 99 04/04/22 07:30 O2 Del Method 04/04/22 07:30 Airway Mallampati Class: IV TM Dist: >3cm Neck ROM: Full Loose/Missing/Broken Teeth: Yes (poor dentition ) Heart: S1,S2 Lungs: diminished breath sounds Assessment and Plan Assessment Anesthesia Assessment: Anesthesia Plan Discussed and Chart Reviewed Final Anesthetic Review Family History of Problems with Anesthesia: No History of Problems with Anesthesia: No NPO: Yes ASA Class: IV Final Preanesthetic Review: Meds/Allgs Chart Reviewed, Consent Obtained/Reviewed (with 2 interpreters ) and Anes Risks/Benef Reviewed Patient Risk: High Procedure Risk: Intermediate Anesthetic Plan Anesthetic Plan: GA Disposition: Standard PACU
--- NOTE | 2022-04-04 08:34 | MHC.SHP ---
Pre-Procedural Eval Section A Date of Service: 04/04/22 Changes since office visit: No Cold of Flu in the past 2 weeks, No New Medical Problems, No Changes in Medication and No Patient answered all questions The History & Physical has been completed within 30 days and I have reviewed it.: Yes Section B Chief Complaint: Bronchiectasis, uncomplicated Allergies: Allergies Allergy/AdvReac Type Severity Reaction Status Date / Time No Known Allergies Allergy Verified 02/26/22 11:26 Plan I have reviewed the history and physical and performed a pertinent physical examination on my patient. No changes have occurred unless specified.
--- NOTE | 2022-04-04 09:47 | PM.OP ---
Brief Operative Note Date of Service: 04/04/22 Pre-op diagnosis: BRONCHIECTASIS, PULMONARY NODULES Post-op diagnosis: same Procedure: BRONCHOSCOPY WITH WASHINGS AND BRUSHINGS Implants: Surgeon: Jacob Flores MD Anesthesia: GLMA Was an Assistant Plant Manager used for this Procedure?: No Estimated blood loss (mL): 2 Pathology: none sent Condition: stable Disposition: same day
--- NOTE | 2022-04-04 21:11 | OP_ITS ---
SURGEON: Jacob Flores MD PREOPERATIVE DIAGNOSIS: POSTOPERATIVE DIAGNOSIS: PROCEDURE PERFORMED: Bronchoscopy with washings and brushings. ESTIMATED BLOOD LOSS: COMPLICATIONS: ANESTHESIA: LMA. ASSISTANTS: SPECIMENS: PREOPERATIVE DIAGNOSES: Bronchoscopy and pulmonary nodules. POSTOPERATIVE DIAGNOSES: Bronchoscopy and pulmonary nodules. ASA classification 4. DESCRIPTION OF PROCEDURE: After the patient was adequately sedated, the flexible digital bronchoscope was inserted through the LMA to the level of the vocal cords. There was significant purulent secretions on the vocal cords themselves. After instilling 3 mL of 2% lidocaine solution, the bronchoscope was navigated past the vocal cords to the level of the trachea. Two additional milliliters of 2% solution was administered. There was significant purulent secretions also in the proximal trachea, moderate to severe. The tracheobronchial tree was examined up to the subsegmental level. There was evidence of significant purulent secretions primarily from the posterior segment of the right upper lobe and also the right middle lobe, which is also consistent with the findings on the CAT scan. For that reason, biopsies were not necessary likely due to the fact that we are dealing with an infectious process. The bronchoscope was navigated to the right middle lobe, where a micro brush was introduced and sent for microbiology specimen in sterile water. Next, a cytologic brush was introduced both to the posterior segment of right upper lobe and also to the right middle lobe area and sent for cytology. Bronchial washings were collected from the right side and also sent for cytology and for Gram stain and culture. The patient has some minimal oozing of blood from the right middle lobe after the brushings, so therefore, an ampule of epinephrine was used mixed in with saline with good hemostasis. No evidence of any active bleeding at the end of the procedure. No endobronchial lesions or masses noted. Nothing obvious that needed to be biopsied. Therefore, biopsies were not done. The bronchoscope was then removed. The total endoscopic time approximately 12 minutes. The patient tolerated the procedure well. Vital signs were stable throughout the procedure. INTERPRETATION: 1. Successful therapeutic cleaning of the airways from the extensive pus, primarily from the posterior segment of right middle lobe and trachea. 2. Right-sided bronchial washings for cytology and microbiology. 3. Right middle lobe microscopic brushings. 4. Right-sided cytologic brushings. 5. Epinephrine used to the right middle lobe with good hemostasis. Jacob Flores MD MR/MODL / [id number]
== END 2022-04-04 11:20 | disposition home or self-care (01) ==
PROVIDERS: PCP Family Medicine; Visit Provider Hospitalist
PROC: 0BJ08ZZ Inspection of Tracheobronchial Tree, Via Natural or Artificial Opening Endoscopic (ICD-10-PCS; CPT 31622; principal; 2022-04-04 08:30)
DX: J47.9 Bronchiectasis, uncomplicated (principal); R91.8 Other nonspecific abnormal finding of lung field
CPT/HCPCS: 31623; 87071; 87077; 87102; 87116; 87186; 87205; 88112; J0171; J1100; J2250; J2405; J3010

== ENCOUNTER → 2022-05-02 11:01 | Outpatient (BNVA) | payer MEDICARE, SELFPAY | PROVIDERS: PCP Family Medicine; Visit Provider Hospitalist | DX: R91.8 Other nonspecific abnormal finding of lung field (principal); J47.9 Bronchiectasis, uncomplicated; R13.10 Dysphagia, unspecified; R63.4 Abnormal weight loss; Z68.1 Body mass index [BMI] 19.9 or less, adult | CPT/HCPCS: 99212 ==

== ENCOUNTER → 2022-08-26 11:00 | Outpatient (BNVA) | payer MEDICARE, SELFPAY | PROVIDERS: PCP Family Medicine; Visit Provider Hospitalist | DX: R91.8 Other nonspecific abnormal finding of lung field (principal); J47.9 Bronchiectasis, uncomplicated; R13.10 Dysphagia, unspecified; R63.4 Abnormal weight loss | CPT/HCPCS: 99212 ==

== ENCOUNTER 2022-10-29 12:08 | Outpatient (REF) | payer SELFPAY | END 2022-10-29 12:09 | disposition home or self-care (01) | LOC: HO.HAP 12:08 | PROVIDERS: Visit Provider Family Medicine | DX: Z46.1 Encounter for fitting and adjustment of hearing aid (principal); H90.3 Sensorineural hearing loss, bilateral | CPT/HCPCS: 92700 ==

== ENCOUNTER → 2022-10-30 13:54 | Outpatient (BNVA) | payer MEDICARE, SELFPAY | PROVIDERS: PCP Family Medicine; Visit Provider Nurse Practitioner Family | DX: N40.1 Benign prostatic hyperplasia with lower urinary tract symptoms (principal); R39.15 Urgency of urination; R35.0 Frequency of micturition | CPT/HCPCS: 51798; 99212 ==

== ENCOUNTER → 2022-11-25 10:40 | Outpatient (BNVA) | payer MEDICARE, SELFPAY | PROVIDERS: PCP Family Medicine; Visit Provider Hospitalist | DX: R91.8 Other nonspecific abnormal finding of lung field (principal); J47.9 Bronchiectasis, uncomplicated; R13.10 Dysphagia, unspecified; R63.4 Abnormal weight loss | CPT/HCPCS: 99212 ==

== ENCOUNTER 2022-12-25 10:20 | Outpatient (REF) | payer MEDICARE, SELFPAY ==
[2022-12-25 10:36] LABS: MANUAL DIFF FLAG NO
[2022-12-25 11:41] LABS: Basophils Absolute Auto 0.1 X10*3/uL (0.0-0.2); Basophils Percent Auto 1.2 % (0-2); Eosinophils Absolute Auto 0.2 X10*3/uL (0.0-0.4); Eosinophils Percent Auto 3.8 % (0-4); Hematocrit 43.3 % (42.0-52.0); Hemoglobin 14.3 g/dl (14.0-18.0); Imm Gran Abs Auto 0.01 X10*3/uL (0.00-0.03); Imm Gran Pct Auto 0.2 % (0.0-0.4); Lymphocytes Absolute Auto 1.9 X10*3/uL (1.2-4.9); Lymphocytes Percent Auto 37.4 % (20-40); Mean Corpuscular Hemoglobin 30.8 pg (27.0-33.0); Mean Corpuscular Volume 93.1 fL (80.0-98.0); Mean Platelet Volume 11.3 fL (9.4-12.4); Monocytes Absolute Auto 0.5 X10*3/uL (0.1-1.2); Neutrophils Absolute Auto 2.4 x10*3/uL (2.0-8.3); Neutrophils Percent Auto 48.4 % (45-73); Platelet Count 213 X10*3/uL (160-400); Red Blood Count 4.65 X10*6/uL (4.60-5.80); Red Cell Distribution Width 14.7 % (11.0-16.0)
[2022-12-25 11:49] LABS: Alanine Aminotransferase 40 U/L (0-40); Albumin Level 4.1 g/dL (3.5-5.0); Alkaline Phosphatase 125 U/L (39-117); Anion Gap 9 (12-20); Aspartate Amino Transferase 27 U/L (5-37); Bilirubin Direct 0.1 mg/dL (0.0-0.5); Bilirubin Total 0.4 mg/dL (0.0-1.0); Blood Urea Nitrogen 13 mg/dL (9-16); Calcium 9.2 mg/dL (8.4-10.2); Carbon Dioxide 32 mmol/L (22-29); Chloride 102 mmol/L (96-108); Estimated Glomerular Filt Rate > 60; Glucose Random 92 mg/dL (60-115); Potassium 4.9 mmol/L (3.3-5.1); Sodium 138 mmol/L (135-145); Total Protein 6.7 g/dL (6.5-8.0)
[2022-12-25 12:05] LABS: Prostate Specific Antigen 1.45 ng/mL (<0.05-4.0)
[2022-12-25 12:14] LABS: Erythrocyte Sedimentation Rate 5 MM/HR (0-15)
== END 2022-12-25 10:21 | disposition home or self-care (01) ==
LOC: HO.LAB 10:20
PROVIDERS: Hospitalist; PCP Family Medicine; Visit Provider Nurse Practitioner Family
DX: Z12.5 Encounter for screening for malignant neoplasm of prostate (principal); N40.0 Benign prostatic hyperplasia without lower urinary tract symptoms; R39.15 Urgency of urination; A31.0 Pulmonary mycobacterial infection; R35.0 Frequency of micturition
CPT/HCPCS: 36415; 80048; 80076; 84153; 85025; 85652

== ENCOUNTER → 2022-12-31 09:30 | Outpatient (BNVA) | payer MEDICARE, SELFPAY | PROVIDERS: PCP Family Medicine; Visit Provider Nurse Practitioner Family | DX: N40.1 Benign prostatic hyperplasia with lower urinary tract symptoms (principal); N13.8 Other obstructive and reflux uropathy; N32.89 Other specified disorders of bladder | CPT/HCPCS: 51798; 99212 ==

== ENCOUNTER 2023-03-19 08:13 | Outpatient (REF) | payer MEDICARE, SELFPAY ==
--- NOTE | ~2023-03-19 | CT_ITS ---
EXAMINATION: CT CHEST WITHOUT CONTRAST CLINICAL INFORMATION: Other nonspecific abnormal finding of lung field COMPARISON: Previous chest CT most recent March 2022 TECHNIQUE: Multidetector volumetric CT imaging of the chest was done. Axial MIP volume rendering provided. Sagittal and coronal reformatted images were obtained. This CT examination was performed using dose optimization techniques as appropriate, variously including the following: *Automated exposure control *Adjustment of mA and/or kV according to patient size (this includes techniques or standardized protocols for targeted exams where dose is matched to indication/reason for exam; i.e. extremities or head) *Use of iterative reconstruction technique DLP: 91 mGy-cm FINDINGS: NEONATAL DOCTOR: LUNGS: Bi apical pleural and parenchymal scarring. Mild emphysematous changes. Waxing and waning appearance of multiple bilateral pulmonary nodules with multiple new bilateral pulmonary nodules. The majority of the new nodules appear to be associated with bronchial wall thickening and there are clustered peribronchial in distribution. Largest new pulmonary nodule are a 7 x 13 mm peripheral or subpleural right upper lobe nodule axial image 150 series 5, and5 x 10 mm in the right lower lobe axial image 390 series 5 and left lower lobe axial image 334 series 5. Multiple nodules on March 2022 exam appears smaller or are no longer seen for example 1 x 1.8 cm right lower lobe nodule axial image 40 series 03/09/2022 exam has resolved. Waxing and waning appearance would suggest an infectious or inflammatory process. Neoplastic process cannot be excluded and chest CT follow-up recommended. There is focal bronchiectasis seen in the right middle lobe. MEDIASTINUM: Calcified mediastinal and left hilar lymph nodes. No enlarged lymph nodes. Moderate coronary artery calcification. Normal heart size. No pericardial effusion. Normal caliber thoracic aorta. Normal thyroid gland. CORONARY ARTERY CALCIFICATION: Moderate PLEURA: There is no pleural effusion. No pleural mass or thickening. AXILLA: No lymphadenopathy. UPPER ABDOMEN: Calcifications in the liver and spleen suggestive of old granulomatous disease. Central small cysts in the upper pole left kidney suggestive of peripelvic cysts. OSSEOUS STRUCTURES: Degenerative changes of the spine. Postsurgical change to the right shoulder CT/CT chest wo IV con IMPRESSION: Waxing and waning appearance of multiple bilateral pulmonary nodules. Waxing and waning appearance would suggest an infectious or inflammatory process. Neoplastic process cannot be excluded and chest CT follow-up recommended. Coronary artery calcification. Fleischner guidelines were followed.
== END 2023-03-19 08:14 | disposition home or self-care (01) ==
LOC: HO.CT 08:13
PROVIDERS: PCP Family Medicine; Visit Provider Hospitalist
DX: R91.8 Other nonspecific abnormal finding of lung field (principal); A31.0 Pulmonary mycobacterial infection
CPT/HCPCS: 71250

== ENCOUNTER 2023-04-09 09:58 | Outpatient (AMB) | payer MEDICARE, SELFPAY ==
--- NOTE | 2023-04-09 10:04 | MHC.OFFVIS ---
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 I was able to communicate with him without any difficulties speaking closely to his ear where he could understand the conversation and properly respond. The patient has been experiencing significant weight loss In he underwent a CT scan of the abdomen pelvis which demonstrated lung windows with both pulmonary nodules as well as bronchiectatic changes. In view of the changes he was referred to Pulmonary. On further questioning he does state having a heaviness of the chest [id number] severity. Worsen when he walks. In addition to that he tends to have a cough which is intermittent. Typically is nonproductive. Although sometimes she does feel congested. He has had significant weight loss. He state that he used to weigh around 125 lb and now he is down to 102 this is been the last year too. He states that his appetite is good he is well. I did review the CT scan of the chest with the patient by describing it and with his caregiver present in the room. There evidence of areas of tree in budding involvement of bronchitis and mucus plugging as well as bronchiectatic changes in the right middle lobe and also the lingula in a also had other nodular densities. All the findings were suggestive of a smoldering infectious process. A non tuberculosis mycobacteria infection is indeed in differential. Cancer would be less likely. However, the patient does not have a formal CT scan of the chest to better assess his lung disease. Therefore I will request a formal CT scan of the chest at this time. The patient also states that he has been having some issues of coughing specially when he is eating certain foods. Therefore, will work in do a further evaluation for underlying dysphagia. This indeed can also resulting difficulties with his respiratory status. 11/08/2021 the patient is here for a pulmonary follow-up visit. Overall he continues to do well. He did respond well to the chest physical therapy. He is performing the Acapella valve and the nebulized therapy. He is able to clear some mucus. Feels like his breathing is better although still feels heavy. He is trying to take in more calories to avoid more weight loss. Hard for him to expectorate. We did talk about his CT scan demonstrating significant bronchiectasis nodular densities. It is very suspicious that he has a smoldering infection such as non tuberculosis mycobacteria infection. I will have him undergo blood work but at this point I think is reasonable just to perform a bronchoscopy and assess for smoldering infections. The patient appears to be pretty symptomatic specially with significant weight loss. Otherwise patient is without any other complaints he did have a swallow test but I do not have the results as of yet. Hopefully we get the final report from the speech pathologist. 02/26/2022 the patient is here for pulmonary follow-up visit. He is here with his family and also with educational interpreter. Overall patient is doing relatively well. He still having his coughing episodes but a little bit less. He is also continue to use the nebulized therapy with the Acapella valve for mucus clearance. He is using it daily. He does not see any significant mucus expectoration. he has also gained some weight from 103 lb in 111 lb. the patient did have blood work including a negative T spot therefore willing out tuberculosis although non tuberculosis mycobacteria infection still very highly likely. We will plan to repeat his CT scan in the next 6-8 weeks. If the nodules have worsen or are not significantly improve then we can plan for bronchoscopy at that moment. Explained to the patient and also the family that malignancy is still in differential although much less likely since is bilateral and appears to be more inflammatory or infectious. Still will have to make sure specially if there is any progression in this process. The patient the family is agreeable to this plan. 05/02/2022 the patient is here today with the educational interpreter. The patient overall feels better after the bronchoscopy. He did tolerate the bronchoscopy well without any significant complications. The patient did have significant improvement secretions throughout the tracheobronchial tree. The cultures were positive for both Staph aureus in addition to strep. In's. Explained to the patient that this organisms typically do not live in the lungs but usually can be micro aspirating the lungs. On further questioning sometimes he does cough when he does eat. The patient may have issues with micro aspirations leading to the recurrent infections. He was placed on doxycycline with good response and his symptoms have improved significantly. He denies any significant mucus production. He continues using the nebulizer with the hypertonic saline for chest physical therapy and mucus clearance. I advised him to continue doing that at least once a day. Which still waiting for finalizing the cultures from the AFB mycobacterial disease, they have been negative. 08/26/2022 the patient is here for a pulmonary follow-up visit. Overall he is doing about the same. He continues to cough at times. 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 They are both sensitive to the Macrolide medicine. We did review his last CT scan demonstrating significant bronchitis and bronchiolitis with significant plugging. The opportunity saline in the CPT has been effective. Although he continues to cough some. His weight has been stable. He does have issues with his eyes therefore if we were to treat him with antibiotics which should avoid if am be toxic effects vision. Patient is agreeable to starting rifampin and azithromycin 3 times a week. Will see if this helps his cough and hopefully we will repeat the imaging studies and will see improvement in his overall picture. The patient will need to get an EKG in addition to blood work prior to the next visit. A 11/25/2022 the patient is here for a pulmonary follow-up visit. Overall the patient has been doing well. He is tolerating the anti mycobacterial therapy. He still coughs at times. But is decreased. His shortness of breath is also improved. Will plan to repeat the CT scan in 3-4 months time. The patient should also have blood work at that time. He did have recent blood work which we reviewed demonstrating normal kidney function and normal liver function studies at this time. Seems to be tolerating medication well. The only thing she has not gotten his EKG. I did call and early l left message with her family to make sure that he gets an EKG to make sure that the medication is not causing any conduction abnormalities. 04/09/2023 the patient is here for a pulmonary follow-up visit. Overall the patient is doing well. He continues on the anti mycobacterial therapy. He has been on 3 times a week therapy. He is tolerating the therapy well. Sometimes he is reluctant to take it because he says he feels fine. He did have a repeat CT scan of the chest in March 2023 which we personally reviewed. It appears that some of the nodular densities have subsided. Some of the other nodular densities has persisted. Overall I see some improvement which is reassuring. He does have chronic bronchiectatic changes and some other changes nodularity that will likely persist. But clinically patient is doing well. Will plan to treat him for another 6 months with the current therapy and then when he returns if he is doing well will just simplify the regimen to monitor therapy. He continues with chest PT. Otherwise patient will get an EKG and blood work in the coming weeks to make sure that he is tolerating the therapy and will follow-up in 6 months. [facility] Medical History Bronchiectasis Chronic constipation Dysphagia Dysphagia Hearing impaired Impaired vision Inguinal hernia Nontuberculous mycobacterial disease of lung Pulmonary nodules Unilateral inguinal hernia Usher's syndrome Vision impairment Surgical History H/O eye surgery Hx of colonoscopy Hx of LASIK Hx of right inguinal hernia repair Family History Father No problems noted. Mother No problems noted. Social History Household Members Other:: senior housing Alcohol intake: never Patient Tobacco Use Status: Never used Tobacco Second Hand Smoke Exposure: No Review of Systems Const Denies excessive sweating, Denies fatigue, Denies fever(s), Denies night sweats, Denies poor appetite and Denies weight loss Eyes Reports as per HPI ENT Denies dysphagia, Reports hearing loss and Denies neck pain Card Denies chest pain Resp Denies chest congestion and Reports cough GI Denies abdominal pain and Denies dysphagia Musc Denies no additional complaints and Denies neck pain Neuro Reports as per HPI Psych Denies no additional complaints Endo Denies excessive sweating and Denies fatigue Wenceslao/Lymph Denies easy bleeding and Denies lymphadenopathy Physical Exam Vital Signs: Last Vital Signs Pulse 57 04/09/23 10:05 BP 116/60 04/09/23 10:05 Pulse Ox 97 04/09/23 10:05 Oxygen Delivery Method Room Air 04/09/23 10:05 BMI result Body Mass Index 15.3 Const General: alert Nutritional Appearance: thin Neck Neck: Yes normal visual inspection, Yes full ROM and Yes no lymphadenopathy Chest Chest palpation & inspection: normal inspection of the chest Resp Auscultation: no rales, no rhonchi, no wheezes and diminished lung sounds Cardio Rate: regular rate Rhythm: regular rhythm Heart sounds: S1 normal heart sound present and S2 normal heart sound present GI Palpation (GI): Soft to palpation and nontender Auscultation: normal bowel sounds Skin General skin exam: rashes and/or lesions noted Assessment & Plan Assessment & Plan (1) Pulmonary nodules: Code(s): R91.8 - Other nonspecific abnormal finding of lung field (2) Bronchiectasis: Code(s): J47.9 - Bronchiectasis, uncomplicated (3) Dysphagia: Code(s): R13.10 - Dysphagia, unspecified (4) Weight loss: Comment: stable Code(s): R63.4 - Abnormal weight loss Plan continue CPT with nebulized therapy an Acapella valve daily continue Azithromycin/rifampin 3 times aweek for 6 months, then Azitromycin MWF monotherapy EKG and bloodwork follow-up in 6 months Orders: Orders Basic Metabolic Panel Today A31.0 - Pulmonary mycobacterial infection Liver Panel Today A31.0 - Pulmonary mycobacterial infection ECG 12 lead EKG Today A31.0 - Pulmonary mycobacterial infection, J44.9 - Chronic obstructive pulmonary disease, unspecified Complete Blood Count Auto Diff Today A31.0 - Pulmonary mycobacterial infection Erythrocyte Sedimentation Rate Today A31.0 - Pulmonary mycobacterial infection Coding Level of Care Code Est Pt Level 4 (90166) Diagnoses Pulmonary nodules R91.8 Bronchiectasis J47.9 Dysphagia R13.10 Weight loss R63.4 Time Spent (min) 19
[2023-04-09 10:05] VITALS: BP 116/60; PULSE 57; O2SAT 97; BMI 15.3
== END 2023-04-09 10:24 | disposition home or self-care (01) ==
PROVIDERS: PCP Family Medicine; Visit Provider Hospitalist
DX: R91.8 Other nonspecific abnormal finding of lung field (principal); J47.9 Bronchiectasis, uncomplicated; R13.10 Dysphagia, unspecified; R63.4 Abnormal weight loss
CPT/HCPCS: 99214

== ENCOUNTER → 2023-04-09 09:58 | Outpatient (BNVA) | payer MEDICARE, SELFPAY | PROVIDERS: Visit Provider Hospitalist | DX: R91.8 Other nonspecific abnormal finding of lung field (principal); R63.4 Abnormal weight loss; R13.10 Dysphagia, unspecified; J47.9 Bronchiectasis, uncomplicated | CPT/HCPCS: 99212 ==

== ENCOUNTER 2023-08-06 08:55 | Outpatient (REF) | payer MEDICARE, MEDICAID, SELFPAY ==
[2023-08-08 21:43] LABS: TS Negative Control Passed; TS Panel A 0; TS Panel B 0; TS Positive Control Passed; TSpotTB Negative (Negative)
== END 2023-08-06 08:56 | disposition home or self-care (01) ==
LOC: HO.HHCL 08:55
PROVIDERS: Visit Provider Family Medicine
DX: Z11.1 Encounter for screening for respiratory tuberculosis (principal)
CPT/HCPCS: 36415; 86481

== ENCOUNTER 2023-09-19 10:37 | Outpatient (REF) | payer MEDICARE, MEDICAID, SELFPAY ==
[2023-09-19 11:55] LABS: MANUAL DIFF FLAG NO
[2023-09-19 12:02] LABS: Basophils Absolute Auto 0.1 X10*3/uL (0.0-0.2); Basophils Percent Auto 0.9 % (0-2); Eosinophils Absolute Auto 0.3 X10*3/uL (0.0-0.4); Eosinophils Percent Auto 4.7 % (0-4); Hematocrit 43.3 % (42.0-52.0); Hemoglobin 14.3 g/dl (14.0-18.0); Imm Gran Abs Auto 0.02 X10*3/uL (0.00-0.03); Imm Gran Pct Auto 0.3 % (0.0-0.4); Lymphocytes Absolute Auto 1.6 X10*3/uL (1.2-4.9); Lymphocytes Percent Auto 22.9 % (20-40); Mean Corpuscular Hemoglobin 30.3 pg (27.0-33.0); Mean Corpuscular Volume 91.7 fL (80.0-98.0); Mean Platelet Volume 11.4 fL (9.4-12.4); Monocytes Absolute Auto 0.7 X10*3/uL (0.1-1.2); Monocytes Percent Auto 10.6 % (2-11); Neutrophils Absolute Auto 4.1 x10*3/uL (2.0-8.3); Neutrophils Percent Auto 60.6 % (45-73); Platelet Count 212 X10*3/uL (160-400); Red Blood Count 4.72 X10*6/uL (4.60-5.80); Red Cell Distribution Width 13.3 % (11.0-16.0); White Blood Count 6.8 X10*3/uL (4.8-10.8)
[2023-09-19 12:45] LABS: Alanine Aminotransferase 54 U/L (0-40); Albumin Level 3.1 g/dL (3.5-5.0); Alkaline Phosphatase 143 U/L (39-117); Anion Gap 9 (12-20); Aspartate Amino Transferase 60 U/L (5-37); Bilirubin Direct < 0.2 mg/dL (0.0-0.5); Bilirubin Total 0.2 mg/dL (0.0-1.0); Blood Urea Nitrogen 19 mg/dL (9-16); Calcium 9.1 mg/dL (8.4-10.2); Carbon Dioxide 32 mmol/L (22-29); Chloride 101 mmol/L (96-108); Estimated Glomerular Filt Rate > 60; Glucose Random 99 mg/dL (60-115); Potassium 4.4 mmol/L (3.3-5.1); Sodium 138 mmol/L (135-145); Total Protein 6.4 g/dL (6.5-8.0)
== END 2023-09-19 10:38 | disposition home or self-care (01) ==
LOC: HO.HHCL 10:37
PROVIDERS: Visit Provider Family Medicine
DX: G30.9 Alzheimer's disease, unspecified (principal); F02.B3 Dementia in other diseases classified elsewhere, moderate, with mood disturbance; R63.4 Abnormal weight loss
CPT/HCPCS: 36415; 80048; 80076; 85025